=== PATIENT | female | born 1960 | race Caucasian/White ===

== ENCOUNTER → 2017-11-29 | Outpatient (CLI) | payer OTHER | LOC: BMCIMAGING 13:08 | PROVIDERS: ATTEND Internal Medicine | DX: Z12.31 Encounter for screening mammogram for malignant neoplasm of breast (principal) ==

== ENCOUNTER 2018-02-26 17:35 | Emergency (ER) | payer OTHER ==
--- NOTE | 2018-02-26 18:03 | EDPHY ---
General - History Smoking Status: Never smoked Time Seen by Provider: 02/26/18 17:52 Narrative: CHIEF COMPLAINT: Abdominal pelvic pain HISTORY OF PRESENT ILLNESS: Patient complains of nearly 2 weeks of lower abdominal and pelvic pain. She describes it as a very deep at pain and a cramping nature. At times it is very sharp into the rectum. Worse with bowel movements. Occasionally worse with exertion of Valsalva. It was worse after her exercise yesterday. With the past 2 days it has significantly increased in pain, but it is not constant. The pain tends to build with question toe. No predictable relieving factors. No nausea or vomiting. No fever chills. No upper abdominal pain. One episode of hematochezia, that she attributes to her hemorrhoids. She has no vaginal bleeding or discharge. She has a complex history including enterocele, cystocele, rectocele that was repaired 13 or 14 years ago. No other associated complaints or modifying factors. REVIEW OF SYSTEMS: Ten systems reviewed and are negative unless otherwise noted in the HPI PCP: Dr. Karishma Kim SPECIALISTS: Dr. Meza PAST MEDICAL HISTORY: Cystocele, rectocele, enterocele, leiomyoma PAST SURGICAL HISTORY: Repair of cystocele, rectocele and enterocele 13 years ago. No history of appendectomy SOCIAL HISTORY: Nonsmoker. Lives and works here locally. She is a pediatric nurse practitioner FAMILY HISTORY: Noncontributory EXAMINATION General Appearance: Alert, no distress Head: normocephalic, atraumatic Eyes: Pupils equal and round, no conjunctival pallor or injection ENT, Mouth: Mucous membranes moist Neck: Normal inspection, supple, non-tender Respiratory: Lungs are clear to auscultation. No wheeze, rhonchi or crackles Cardiovascular: Regular rate and rhythm. No murmur Gastrointestinal: Abdomen is soft and nondistended. There is tenderness of the lower quadrant symmetrically. Mild suprapubic tenderness. No palpable mass. Bowel sounds are symmetric in all 4 quadrants. No guarding. No tympany rigidity. 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 Normal appearance of the perineal skin. Rectal exam deferred. Volar is unremarkable in appearance. There is no crepitus, subcutaneous emphysema, cellulitis, abscess or necrosis noted Back: non-tender, no bony abnormalities Neurological: A&O, nonfocal, normal gait Skin: Warm and dry, no rash Extremities: Nontender, no pedal edema Psychiatric: Mood and affect normal DIFFERENTIAL DIAGNOSES: Including but not limited to cystocele, rectocele, enterocele, Gerson, colitis , diverticulitis, enteritis, appendicitis MDM: 6:00 p.m. Lower abdominal pelvic pain of 2 weeks duration associated with tenesmus, difficulty with bowel movements at times. She did have 1 episode of ziyad blood in her stool, but does have external hemorrhoids and feels this was related. She has no voluminous or repetitive and bright red blood per rectum. No hematemesis. She is in no acute distress with a relatively benign abdominal exam with pain in the lower quadrants and tenderness of the perineum. I do not appreciate any crepitus, subcutaneous emphysema, necrosis or gangrene of the perineal skin. Vaginal angle exam and rectal exams have been deferred until after the CT scan at her request for comfort level. Vital signs are within normal limits, she does not meet criteria for SIRS. She is declining pain medication. Given her complex history I have ordered a CT scan. Laboratory studies are pending. I have discussed with Dr. Marie. Patient is asking that I not order an ultrasound of the pelvis until we obtain results of the CT scan. 6:40 p.m. Patient re-evaluated. Resting comfortably. Awaiting CT scan. Mild leukocytosis. Chemistry unremarkable. 8:00 p.m. Notified by radiologist. CT scan reveals sigmoid diverticulitis. No abscess or obvious perforation. No other acute findings. No bowel obstruction. 8:10 p.m. Patient re-evaluated. We discussed the CT scan findings. At this point I do feel she is an on complicated diverticulitis as she has no obvious abscess or perfect viscus on CT scan. No pneumoperitoneum. No fever. Her pain is minimal at this time. I do feel she is reasonable for outpatient therapy and the patient agrees. She does not want to be admitted. Given her current presence of a right peroneus brevis tendon rupture, do not feel that Cipro and Flagyl be appropriate. The patient agrees. We ultimately chills Augmentin. We discussed the risks, benefits alternatives. We discussed strict ED precautions for worsening pain, fever, constipation or vomiting. We discussed clear liquid diet for the next 24-48 hours. She is comfortable this plan. She is discharged home with instructions to contact her primary care physician. Discharged in stable condition. SUPERVISION: Patient was independently examined, but I discussed the case with my secondary supervising physician Dr. Marie ([facility]) The patient was evaluated and managed by the physician print shop assistant. I have reviewed this chart and I agree with the findings and plan of care as documented , as indicated by my signature. I am the secondary supervising physician. ( Fely Marie) - Objective Vital Signs: Initial Vital Signs Temperature (C) 36.8 C 02/26/18 17:39 Heart Rate 73 02/26/18 17:39 Respiratory Rate 18 02/26/18 17:39 Blood Pressure 147/82 H 02/26/18 17:39 O2 Sat (%) 94 02/26/18 17:39 O2 Delivery Mode Room Air Allergies/Adverse Reactions: No Known Allergies Allergy (Unverified 02/26/18 17:38) Home Medications: Medication Instructions Recorded Amoxicillin/Clavulanate Pot 875 mg PO TID #30 tab 02/26/18 [Augmentin 875 MG TAB (*)] Dicyclomine [Bentyl 20 MG (*)] 20 mg PO TID PRN #15 tab 02/26/18 Estraderm 0.05 MG 02/26/18 Ondansetron Odt [Zofran Odt 4 mg 4 mg PO Q6 PRN #12 tab 02/26/18 (*)] Progesterone 02/26/18 Synthroid 02/26/18 Testosterone 02/26/18 oxyCODONE HCL/ACETAMINOPHEN 1 each PO Q4-6PRN PRN #13 tablet 02/26/18 [Percocet 5-325 mg Tablet] Laboratory Results: Laboratory Results 02/26/18 17:58 02/26/18 17:58 Medications Given: Discontinued Medications Amoxicillin/Clavulanate Potassium (Augmentin 875mg) 875 mg PO EDNOW ONE PRN Reason: Protocol Stop: 02/26/18 20:10 Last Admin: 02/26/18 20:24 Dose: 875 mg Dicyclomine HCl (Bentyl) 20 mg PO EDNOW ONE Stop: 02/26/18 20:10 Last Admin: 02/26/18 20:24 Dose: 20 mg Oxycodone/Acetaminophen (Percocet 5/325mg Prepack#4) 1 btl TAKEHOME EDNOW ONE Stop: 02/26/18 20:11 Last Admin: 02/26/18 20:24 Dose: 1 btl Departure - Departure Disposition: Home, Routine, Self-Care Clinical Impression: Sigmoid diverticulitis Condition: Good Instructions: Oxycodone/Acetaminophen (By mouth), Amoxicillin/Clavulanate Potassium (By mouth), Diverticulitis (ED), Diverticulitis Diet (ED) Additional Instructions: 1. Augmentin every 8 hr as prescribed. First dose in the emergency department 2. Pain medication as prescribed as needed 3. Bentyl as prescribed as needed for abdominal cramping 4. Contact primary care physician tomorrow morning 5. ED precautions for any worsening of pain, fever, nausea, intolerance of intake, constipation 6. MiraLax 1 packet [id number] every other day as needed Referrals: Karishma Kim MD [Primary Care Provider] - As per Instructions Stand Alone Forms: Work Excuse Prescriptions: Amoxicillin/Clavulanate Pot [Augmentin 875 MG TAB (*)] 875 mg PO TID #30 tab Dicyclomine [Bentyl 20 MG (*)] 20 mg PO TID PRN #15 tab PRN Reason: abdominal cramps Ondansetron Odt [Zofran Odt 4 mg (*)] 4 mg PO Q6 PRN #12 tab PRN Reason: Nausea/Vomiting, Use 1st oxyCODONE HCL/ACETAMINOPHEN [Percocet 5-325 mg Tablet] 1 each PO Q4-6PRN PRN # 13 tablet PRN Reason: Pain, Breakthrough
[2018-02-26 18:08] LABS: PLATELET COUNT 215 10^3/uL (150-400)
[2018-02-26] MEDS ORDERED: IOPAMIDOL (ISOVUE-300) 100 ML BTL ONE (19:02)
[2018-02-26 19:40] VITALS: BP 128/84
[2018-02-26] MEDS ORDERED: AMOXICILLIN/CLAVULANATE POT 875/125 MG TAB PO ONE (20:09)
[2018-02-26] MEDS ORDERED: DICYCLOMINE 10 MG CAP PO ONE (20:09)
[2018-02-26] MEDS ORDERED: OXYCODONE/APAP 5/325MG PREPACK#4 BTL TAKEHOME ONE (20:10)
== END 2018-02-26 20:15 | disposition home or self-care (01) ==
DX: K57.32 Diverticulitis of large intestine without perforation or abscess without bleeding (principal)
CPT/HCPCS: Q9967

== ENCOUNTER 2019-03-04 17:42 | Inpatient (IN) | payer OTHER ==
[2019-03-04] MEDS ORDERED: NS 1,000 ML IV ONE (18:41)
--- NOTE | 2019-03-04 18:41 | EDPHY ---
H & P Stated Complaint: Abd pain/just got back from [place] Time Seen by Provider: 03/04/19 18:41 HPI/ROS: HPI CHIEF COMPLAINT: Abdominal pain. HISTORY OF PRESENT ILLNESS: Patient is a 58-year-old female history of diverticulitis, presents emergency room stating she believes she may have diverticulitis. She presents emergency room with abdominal pain. Lower in nature. She has had abdominal pain for the past 4 days. She denies any fever, denies vomiting or diarrhea. She was recently in [place] for the past 4 days and developed abdominal pain prior to going to [place]. It was rather constant down her she started on ciprofloxacin given to her in [place]. Has not had a fever chills or rigors has not had diarrhea. No vomiting. The patient complains of lower abdominal pain. Crampy in nature. States feels very similar to her diverticulitis she had a year ago. Past Medical History: History of hormone replacements, diverticulitis Past Surgical History: Appendectomy, rectocele repair surgery Social History: Denies drugs alcohol tobacco. Works as a nurse practitioner Family History: Noncontributory ROS REVIEW OF SYSTEMS: 10 Systems were reviewed and negative with the exception of the elements mentioned in the history of present illness. Exam Constitutional triage nursing summary reviewed, vital signs reviewed, awake/ alert. Eyes normal conjunctivae and sclera, EOMI, PERRLA. HENT normal inspection, atraumatic, moist mucus membranes, no epistaxis, neck supple/ no meningismus, no raccoon eyes. Respiratory clear to auscultation bilaterally, normal breath sounds, no respiratory distress, no wheezing. Cardiovascular rate normal, regular rhythm, no murmur, no edema, distal pulses normal. Gastrointestinal mild tender palpation lower abdomen, no rebound, no guarding, normal bowel sounds, no distension, no pulsatile mass. Genitourinary no CVA tenderness. Musculoskeletal no midline vertebral tenderness, full range of motion, no calf swelling, no tenderness of extremities, no meningismus, good pulses, neurovascularly intact. Skin pink, warm, & dry, no rash, skin atraumatic. Neurologic awake, alert and oriented x 3, AAOx3, moves all 4 extremities equally, motor intact, sensory intact, CN II-XII intact, normal cerebellar, normal vision, normal speech. Psychiatric normal mood/affect. Heme/Lymph/Immune no lymphadenopathy. Differential Diagnosis: Differential diagnosis includes but is not limited to and in no particular order: Bowel obstruction, appendicitis, gallbladder disease, diverticulitis, colitis, enteritis, perforated viscus, gastritis, GERD , esophagitis, urinary tract infection, pyelonephritis, kidney stones Medical Decision Making: Plan for this patient IV establishment IV fluid bolus , basic labs, lactic acid, CT scan abdomen pelvis with IV contrast help delineate her lower abdominal pain. Re-evaluation: CT scan abdomen pelvis with IV contrast results in significant acute diverticulitis of the sigmoid colon. Also there is a small area that could be a diverticulum versus very small pericolonic abscess. CT results were called to me by Dr. Jones. Plan for IV Flagyl and IV Cipro. Plan for hospital admission overnight. Discussed the case with the patient and her CT results. Plan for admission the hospital for diverticulitis. I spoke with the hospitalist service Dr. Blair, who agrees to admit the patient. Patient agrees for admission. Patient this time resting comfortably 1958 no acute distress. Feels comfortable with plan. Source: Patient - Personal History Current Tetanus/Diphtheria Vaccine: Yes - Medical/Surgical History Hx Asthma: No Hx Chronic Respiratory Disease: No Hx Diabetes: No Hx Cardiac Disease: No Hx Renal Disease: No Hx Cirrhosis: No Hx Alcoholism: No Hx HIV/AIDS: No Hx Splenectomy or Spleen Trauma: No Other PMH: rectocele tepair with mesh - Social History Smoking Status: Never smoked Constitutional: Initial Vital Signs Temperature (C) 37.1 C 03/04/19 18:01 Heart Rate 70 03/04/19 18:01 Respiratory Rate 18 03/04/19 18:01 Blood Pressure 125/77 H 03/04/19 18:01 O2 Sat (%) 94 03/04/19 18:01 O2 Delivery Mode Room Air Allergies/Adverse Reactions: No Known Allergies Allergy (Verified 03/04/19 20:23) Home Medications: Medication Instructions Recorded Progesterone Compounded Cream 1 jakub TD DAILY 03/04/19 Estradiol [Vivelle-Dot 0.05MG (*)] 0.05 mg TD SUWE 03/04/19 Levothyroxine Sodium 100 mcg PO DAILY@06 03/04/19 [Levothyroxine Sodium] Progesterone, Micronized 100 mg PO HS 03/04/19 [Progesterone] Medical Decision Making - Data Points Laboratory Results: Laboratory Results 03/04/19 19:00 03/04/19 19:00 Medications Given: Acetaminophen (Tylenol) 650 mg PO Q4 PRN PRN Reason: Pain, Mild/Fever, Can Take PO Stop: 08/31/19 20:53 Last Admin: 03/05/19 09:00 Dose: 650 mg Enoxaparin Sodium (Lovenox) 40 mg SC DAILY ROBBIE Stop: 09/01/19 08:59 Last Admin: 03/05/19 09:00 Dose: Not Given Ceftriaxone Sodium/Dextrose (Rocephin 1 Gm (Premix)) 50 mls @ 100 mls/hr IV DAILY ROBBIE PRN Reason: Protocol Stop: 04/03/19 20:59 Last Admin: 03/05/19 09:00 Dose: 50 mls Metronidazole/Sodium Chloride (Flagyl 500 Mg (Premix)) 100 mls @ 100 mls/hr IV Q8HRS ROBBIE PRN Reason: Protocol Stop: 04/03/19 21:59 Last Admin: 03/05/19 05:34 Dose: 100 mls Sodium Chloride (Ns) 1,000 mls @ 100 mls/hr IV CONT ROBBIE Stop: 08/31/19 20:59 Last Admin: 03/04/19 23:57 Dose: 1,000 mls Levothyroxine Sodium (Synthroid) 100 mcg PO DAILY@06 ROBBIE Stop: 09/01/19 05:59 Last Admin: 03/05/19 05:34 Dose: 100 mcg Miscellaneous Medication ( Progesterone Compounded Cream) 1 jakub TD DAILY ROBBIE Stop: 09/01/19 08:59 Last Admin: 03/05/19 08:52 Dose: Not Given Progesterone (Prometrium) 100 mg PO HS ROBBIE Stop: 08/31/19 20:59 Last Admin: 03/04/19 22:16 Dose: 100 mg Discontinued Medications Sodium Chloride (Ns) 1,000 mls @ 0 mls/hr IV EDNOW ONE; Wide Open PRN Reason: Protocol Stop: 03/04/19 18:42 Last Admin: 03/04/19 18:58 Dose: 1,000 mls Ciprofloxacin/Dextrose (Cipro 400 Mg (Premix)) 200 mls @ 200 mls/hr IV EDNOW ONE PRN Reason: Protocol Stop: 03/04/19 20:42 Last Admin: 03/04/19 22:26 Dose: Not Given Metronidazole/Sodium Chloride (Flagyl 500 Mg (Premix)) 100 mls @ 100 mls/hr IV EDNOW ONE PRN Reason: Protocol Stop: 03/04/19 20:42 Last Admin: 03/04/19 20:03 Dose: 100 mls Point of Care Test Results: Chemistry 03/04/19 19:08 POC Sodium 139 mEq/L mEq/L (135-145) POC Potassium 3.5 mEq/L mEq/L (3.3-5.0) POC Chloride 102 mEq/L mEq/L (97-110) POC Total CO2 25 mEq/L mEq/L (22-31) POC BUN 9 mg/dL mg/dL (7-23) POC Creatinine 0.7 mg/dL mg/dL (0.6-1.0) POC Glucose 98 mg/dL mg/dL (70-100) ISTAT H&H 03/04/19 19:08 POC Hgb 14.3 gm/dL gm/dL (12.6-16.3) POC Hct 42 % % (38-47) Departure - Departure Disposition: [facility] Inpatient Acute Clinical Impression: Diverticulitis Condition: Good
[2019-03-04] MEDS ORDERED: IOPAMIDOL (ISOVUE-300) 100 ML BTL ONE (19:11)
[2019-03-04 19:15] LABS: PLATELET COUNT 185 10^3/uL (150-400)
[2019-03-04] MEDS ORDERED: CIPROFLOXACIN 400 MG/DEXTROSE 200 ML IV ONE (19:43)
[2019-03-04] MEDS ORDERED: ONDANSETRON 4 MG/2 ML VIAL IVP PRN (20:54)
[2019-03-04] MEDS ORDERED: traMADol 50 MG TAB PO PRN (20:54)
[2019-03-04] MEDS ORDERED: oxyCODONE IR 5 MG TAB PO PRN (20:54)
[2019-03-04] MEDS ORDERED: HYDROmorphONE/DILAUDID 1 MG/ML INJ IVP PRN (20:54)
[2019-03-04] MEDS ORDERED: cefTRIAXone 1 GM/DEXTROSE 1 GM/50 ML BAG IV ONE (21:11)
--- NOTE | 2019-03-04 21:57 | GHP ---
[f rep st] HISTORY AND PHYSICAL DATE OF ADMISSION: 03/04/2019 CHIEF COMPLAINT: Lower abdominal pain. HISTORY OF PRESENT ILLNESS: The patient is a 58-year-old female, who has a previous episode of diver ticulitis exactly 1 year ago that had a very similar presentation. About 1 week ago, she started to develop some subtle abdominal pain, but had a trip planned to [place]. While in [place], the pain got worse. She was waking up at night with sharp lower abdominal pain. She decided to come home from [facility] early and came straight from the airport to the emergency room. While in [place], she saw a doct or down there who gave her ciprofloxacin. She has been on Cipro for 2 days with no improvement. Her last colonoscopy was 5 years ago and she is due for a repeat. She denies any nausea, vomiting or di arrhea. The pain is worse with ambulation. PAST MEDICAL HISTORY: 1. Diverticulitis 1 year ago. 2. Hypothyroidism. PAST SURGICAL HISTORY: Appendectomy and rectocele. She has ankle surgery pending next week. MEDICATIONS: Please see computerized record for a full detailed list. ALLERGIES: No known drug allergies. SOCIAL HISTORY: No smoking, 1 alcoholic beverage per day. She is a pediatric nurse practitioner. REVIEW OF SYSTEMS: Complete review of systems was obtained and negative regarding constitutional, HE ENT, GI, pulmonary, cardiovascular, , hematology, skin, musculoskeletal, endocrine, and psychiatric , except for positives and negatives as in HPI. FAMILY HISTORY: Reviewed and noncontributory to presenting complaint. PHYSICAL EXAMINATION: GENERAL: Well-developed, well-nourished female, in no acute distress. VITAL SIGNS: Temperature 37.1, pulse 70, blood pressure 125/77, saturating 94% on room air. EYES: Normal conjunctivae. Pupils are equal, round and react to light. ENT: Normal ears and nose. Hearing int act. Normal lips and teeth. Oropharynx is moist. NECK: Trachea is midline. No thyromegaly. CHES T: Normal respiratory effort. Lungs are clear to auscultation bilaterally. CARDIOVASCULAR SYSTEM: Regular rate and rhythm. No murmur. No lower extremity edema. ABDOMEN: Soft. Minimal tenderness to palpation. No rebound or guarding. No hepatosplenomegaly. SKIN: Warm, dry, and intact without rash. MUSCULOSKELETAL: No cyanosis or clubbing. Strength is 5/5 upper and lower extremities. CITLALI ROLOGIC: Cranial nerves are intact. Normal sensation to light touch. PSYCHIATRIC: She is alert an d oriented x3. Normal mood and affect. Normal judgment and insight. Normal memory. LABORATORY DATA: White count 11.02, hematocrit 40.4, platelets 185. Sodium 136, potassium 3.7, chlo ride 103, bicarb 25, BUN 10, creatinine 0.8, glucose 95. LFTs are negative. Lipase is 20. Lactate is 0.8. CT scan of the abdomen and pelvis shows extensive sigmoid diverticulitis with a 1 cm air-flu id level, which is suspected to be within a diverticula. This case was discussed with Dr. Mejia Everett, the emergency room physician. He gave her IV Cipro and IV Flagyl. ASSESSMENT AND PLAN: 1. Recurrent sigmoid diverticulitis. She has failed oral ciprofloxacin. We will change her to IV c eftriaxone and IV Flagyl. Given rapid recurrence of diverticulitis in a similar location, could cons ider elective surgical resection once this episode has calmed down. She also needs a repeat colonosc opy when resolved. We will put her on clear liquids. I anticipate she will need a couple days of IV antibiotics. 2. Hypothyroidism: Continue Synthroid. 3. Cardiac or respiratory emergency status: She is full code. 4. Admission status: We will admit to inpatient. I anticipate greater than 2 midnights required fo r stabilization. 5. Deep vein thrombosis prophylaxis: She is high risk. We will place her on subcutaneous Lovenox. /[id number]/MODL
[2019-03-04] MEDS: PROGESTERONE,MICR 100 MG CAP PO SCH (22:16)
[2019-03-04] MEDS: ACETAMINOPHEN 325 MG TAB PO PRN (22:16)
[2019-03-04] MEDS: NS 1,000 ML IV SCH (23:57)
[2019-03-05 05:24] LABS: PLATELET COUNT 157 10^3/uL (150-400)
[2019-03-05] MEDS: LEVOTHYROXINE 100 MCG TAB PO SCH (05:34)
[2019-03-05] MEDS: ENOXAPARIN 40 MG/0.4 ML SYR SC SCH (09:00)
[2019-03-05] MEDS: ACETAMINOPHEN 325 MG TAB PO PRN ×2 (09:00→14:17)
--- NOTE | 2019-03-05 10:09 | PDMN ---
Medical Necessity Medical necessity: [facility] M150 Diverticulitis, Acute, A-2 days: 58 yo w/ abd pain in setting of previous diverticulitis episode. Pt started on cipro as outpt w/ o improvement. Eval reveals recurrent sigmoid diverticulitis, failed outpt tx. Consider surgical resect once stabilized. IV antibx and IVF started. Anticipate>2MN for ongoing IV antibx tx. Meets [facility] IP criteria for IP care as appropriate outpt antimicrobial tx was not effective.
--- NOTE | 2019-03-05 10:17 | HOSPPROG ---
Hospitalist Progress Note Assessment/Plan: Manuela is a 58 y/o female who has a hx of diverticulitis approximately a year ago. A week ago, while in [place], she was waking up at night w sharp abdominal pain. In [place], the doctor gave her a prescription for Cipro. She had no improvement w her symptoms. First encounter, chart reviewed. * Recurrent sigmoid diverticulitis -failed OP oral Cipro -on Ceftriaxone and Flagyl -will need a repeat colonoscopy when this resolves -may need surgery w second episode in same location (she wants to avoid this) -Reviewed CT scan results which showed extensive sigmoid diverticulitis w a 1 cm air/fluid collection most likely r/t inflamed diverticulum -feeling better today -tolerating clears today, trial of low residue diet * Hypothyroidism - Synthroid *tendon, heel repair in early March on right foot -she should be fine for surgery if the above clears -avoid quinolone on dc *plan: monitor overnight; she should be ready for dc tomorrow. Subjective: Manuela is feeling better, bloated and having minimal pain. Feels constipated. Objective: Vital Signs Temp Pulse Resp BP Pulse Ox 36.7 C 64 16 103/71 92 03/05/19 07:00 03/05/19 07:00 03/05/19 07:00 03/05/19 07:00 03/05/19 07:00 Laboratory Results 03/05/19 04:32 03/04/19 03/05/19 03/06/19 05:59 05:59 05:59 Output Total 400 Balance -400 - Physical Exam Constitutional: no apparent distress, appears nourished, not in pain Eyes: PERRL Ears, Nose, Mouth, Throat: hearing normal Cardiovascular: regular rate and rhythym Respiratory: no respiratory distress Gastrointestinal: normoactive bowel sounds, tenderness (bilateral lower quadrants) Skin: warm Musculoskeletal: full muscle strength Neurologic: AAOx3 Psychiatric: interacting appropriately ICD10 Worksheet Patient Problems: Problems Problem Status Onset Diverticulitis Acute
[2019-03-05] MEDS: NS 1,000 ML IV SCH (13:15)
--- NOTE | 2019-03-05 14:51 | ASMTCMCOM ---
CM Note CM Note Notes: Spoke with pt in the room. Pt admitted for abdominal pain from recurrent sigmoid diverticulitis. Surgery is being considered. DC date TBD. Pt states she lives with daughter and has plenty of help at home. Anticipate pt will discharge independently. No therapies ordered at this time. CM to follow. D/C Plan: Independent Date Signed: 03/05/2019 02:50 PM Electronically Signed By:Gillian Barker
--- NOTE | 2019-03-05 19:23 | HOSPPROG ---
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 Patient is currently receiving Rocephin and Flagyl for acute diverticulitis. No change in antibiotics is required as it is not recommended to treat with this particular case of E coli infection because of the association of hemolytic uremic syndrome. Objective: Vital Signs Temp Pulse Resp BP Pulse Ox 36.6 C 55 L 16 115/82 H 94 03/05/19 11:45 03/05/19 11:45 03/05/19 11:45 03/05/19 11:45 03/05/19 11:45 Microbiology 03/05/19 15:32 Gastrointestinal Tract Panel (PCR) - Final Stool E.coli Shiga-Like Toxin Pos E.coli 0157 Detected E.coli Enteroaggregative(Eaec) Laboratory Results 03/05/19 04:32 03/04/19 03/05/19 03/06/19 05:59 05:59 05:59 Intake Total 700 Output Total 400 Balance -400 700 ICD10 Worksheet Patient Problems: Problems Problem Status Onset Diverticulitis Acute
[2019-03-05] MEDS: PROGESTERONE,MICR 100 MG CAP PO SCH (21:09)
[2019-03-06] MEDS: LEVOTHYROXINE 100 MCG TAB PO SCH (05:00)
[2019-03-06 07:57] VITALS: BP 113/78
[2019-03-06] MEDS: ENOXAPARIN 40 MG/0.4 ML SYR SC SCH (08:31)
--- NOTE | 2019-03-06 08:59 | HOSPPROG ---
Hospitalist Progress Note Assessment/Plan: Manuela is a 58 y/o female who has a hx of diverticulitis approximately a year ago. A week ago, while in [place], she was waking up at night w sharp abdominal pain. In [place], the doctor gave her a prescription for Cipro. She had no improvement w her symptoms. First encounter, chart reviewed. Recurrent sigmoid diverticulitis failed OP oral Cipro on Ceftriaxone and Flagyl tolerating clears transition to augmentin in dc * Hypothyroidism - Synthroid *tendon, heel repair in early March on right foot -she should be fine for surgery if the above clears -avoid quinolone on dc *plan: home today > 30 minutes on dc Subjective: feels better this AM Objective: Vital Signs Temp Pulse Resp BP Pulse Ox 36.8 C 61 16 113/78 94 03/06/19 07:55 03/06/19 07:55 03/06/19 07:55 03/06/19 07:55 03/06/19 07:55 Microbiology 03/05/19 15:32 Gastrointestinal Tract Panel (PCR) - Final Stool E.coli Shiga-Like Toxin Pos E.coli 0157 Detected E.coli Enteroaggregative(Eaec) Laboratory Results 03/05/19 04:32 03/05/19 03/06/19 03/07/19 05:59 05:59 05:59 Intake Total 700 Output Total 400 Balance -400 700 - Physical Exam Constitutional: no apparent distress, appears nourished Eyes: PERRL, anicteric sclera Ears, Nose, Mouth, Throat: moist mucous membranes, hearing normal Cardiovascular: regular rate and rhythym, no murmur, rub, or gallop Respiratory: no respiratory distress, no rales or rhonchi Gastrointestinal: normoactive bowel sounds, soft, non-tender abdomen, No guarding, No rebound Genitourinary: no bladder fullness, No agee in urethra Skin: warm, normal color Musculoskeletal: full muscle strength Neurologic: AAOx3 ICD10 Worksheet Patient Problems: Problems Problem Status Onset Diverticulitis Acute
--- NOTE | 2019-03-06 09:51 | GDS ---
[f rep st] DISCHARGE SUMMARY DISCHARGE DIAGNOSES: 1. Acute diverticulitis left lower quadrant, this is recurrent. 2. History of diverticulitis. 3. Hypothyroidism. She has ankle surgery coming up next week. Please see admission history and physical by Dr. Esha Blair. The patient is a 58-year-old female who was in [place] about a week prior to admission. She had some subtle abdominal pain, but it got worse. She was seen by a doctor in [place] who gave her ci profloxacin, but ultimately had progressive cramping and came here. On presentation, she was found to have a leukocytosis and an abdominal CT that showed extensive sigmo id diverticulitis with a 1 cm air-fluid collection at the margin of the sigmoid colon, felt more like ly consistent with an inflamed diverticulum, less likely to be an abscess. She also had some bladder wall thickening. The patient did not have urinary symptoms. While here, she received ceftriaxone and Flagyl with impr ovement in her symptoms, and on the third hospital day, was feeling well, eating. She was still havi ng lower abdominal cramping, but it improved. GI PCR panel showed Shiga-like toxin positivity, E coli O157, and Enteroaggregative E coli. These we re not felt to be causative, and she has an indication for antibiotics with regard to her diverticuli tis. Provided the patient tolerates orals today, she is discharged home to complete a course of Augmentin. We discussed the need for possible surgery. She would like to avoid it at this time. 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 /[id number]/MODL
--- NOTE | 2019-03-06 10:14 | ASMTDCNOTE ---
Case Management Discharge Discharge Order Complete? Answers: Yes Patient to Obtain Answers: Independently Medications Transportation Arranged Answers: Family/Friends Family Notified Answers: Yes Notes: Patient called family Discharge Comments Notes: CM met with patient. Patient reports that her son is transporting her home and helping her to get her prescriptions. No other CM needs at this time. Date Signed: 03/06/2019 10:13 AM Electronically Signed By:Nyasia Ordonez
--- NOTE | 2019-03-06 10:17 | ASDISCHSUM ---
Discharge Information Plan Status:Home with No Needs Medically Cleared to Leave: Discharge Date: D/C Disposition:Home, Routine, Self-Care ADT D/C Disposition: Projected Discharge Date: Transportation at D/C:Family Discharge Delay Reason: Follow-Up Date: Discharge Slot: Final Diagnosis:Diverticulitis Placement Information Patient Contact Information Contact Name:JOSE Relationship:Arnold Address: Work Phone: City: [facility] Phone: State/Zip Code:[place] Email: Financial Information Financial Class:HMO and PPO Plans Primary Plan Desc:[place] Primary Plan Number:[id number] Secondary Plan Desc: Secondary Plan Number: Assessment Information LACE LACE Length of stay for Answers: 2 days current admission Acuity / Level of Answers: Yes Care: Did the patient have an inpatient admission? Comorbidities - select Answers: Other Notes: Diverticulitis; Hypothy ozzie all that apply d # of Emergency department Answers: 1-2 visits in the last 6 months Score: 7 Date Signed: 03/06/2019 10:14 AM Electronically Signed By:Nyasia Ordonez [facility] CM Progress Note CM Note CM Note Notes: Spoke with pt in the room. Pt admitted for abdominal pain from recurrent sigmoid diverticulitis. Surgery is being considered. DC date TBD. Pt states she lives with daughter and has plenty of help at home. Anticipate pt will discharge independently. No therapies ordered at this time. CM to follow. D/C Plan: Independent Date Signed: 03/05/2019 02:50 PM Electronically Signed By:Gillian Barker Case Management Discharge Plan Note Case Management Discharge Discharge Order Complete? Answers: Yes Patient to Obtain Answers: Independently Medications Transportation Arranged Answers: Family/Friends Family Notified Answers: Yes Notes: Patient called family Discharge Comments Notes: CM met with patient. Patient reports that her son is transporting her home and helping her to get her prescriptions. No other CM needs at this time. Date Signed: 03/06/2019 10:13 AM Electronically Signed By:Nyasia Ordonez Intervention Information Intervention Type:*Incorrect Registration Date of Service:03/05/2019 09:13 AM Patient Type:Observation Staff Member:Billie Juárez Hours: Discipline: Severity: Comment:
[2019-03-06 12:17] LABS: INR 1.05 (0.83-1.16); PROTIME(PATIENT) 13.3 SEC (12.0-15.0)
[2019-03-07] MEDS ORDERED: ESTRADIOL VIVELLE 0.05 MG PATCH TD SCH (21:00)
== END 2019-03-06 11:50 | disposition home or self-care (01) | DRG 392 ==
LOC: OBSVTOIN 20:53 → F3E 21:55
PROVIDERS: ADMIT Internal Medicine; ATTEND Internal Medicine
DX: K57.32 Diverticulitis of large intestine without perforation or abscess without bleeding (principal); E86.9 Volume depletion, unspecified; E03.9 Hypothyroidism, unspecified
CPT/HCPCS: 82435-PO; 82565-PO; 82947-PO; 84132-PO; 84295-PO; 84520-PO; 85014-ER; 85240-90; 85245-90; 85246-90; 96365; 96366; J0696; J0744; J1650; Q9967

== ENCOUNTER → 2019-05-18 | Outpatient (CLI) | payer OTHER | LOC: EMCIMAGING 07:06 ==